=== PATIENT | female | born 1985 | race Caucasian/White ===

== ENCOUNTER 2017-05-17 19:51 | Emergency (ER) | payer MEDICAID ==
[2017-05-17] MEDS ORDERED: Acetaminophen 500 MG Tab PO ONE (21:25)
[2017-05-17] MEDS ORDERED: Acetaminophen 500 MG Tab ONE (21:26)
[2017-05-17] MEDS ORDERED: DULoxetine 30 MG Cap PO ONE (21:52)
[2017-05-17] MEDS ORDERED: DULoxetine 30 MG Cap ONE (21:54)
--- NOTE | 2017-05-17 23:19 | ER ---
HISTORY OF PRESENT ILLNESS: A 31-year-old lady here with complaints of chest discomfort with coughing. The pain seems to radiate back between her shoulder blades. This has been ongoing for a few days. I actually saw the patient a week ago. She was diagnosed with asthmatic bronchitis. She was put on antibiotic, albuterol, and three days of prednisone. She states that this treatment did seem to help her very much. The patient has not been running a fever. She has had episodes of heart palpitations on and off. They do not last very long. There are no problems with chest pain during these episodes. She states that she has a bruise on her right upper arm. She is concerned that she has a blood clot. She is here with another family member who is also very concerned about the patient. CURRENT MEDICATIONS: Cymbalta 60 mg daily that she takes for chronic pain. OBJECTIVE: GENERAL APPEARANCE: The patient is awake and alert, in no obvious distress. VITAL SIGNS: Reviewed as listed. HEENT: Ears; TMs are normal. Nares are patent. Oral mucous membranes moist. Tonsils not enlarged or injected. Pharynx not inflamed. NECK: Supple. LUNGS: Clear to auscultation with good air exchange throughout the lung jeffrey. CARDIAC: Heart sounds distinct, S1, S2 present. Regular rate. No murmurs. ABDOMEN: Soft, nontender. Bowel sounds are present. SKIN: Warm and dry. LAB AND X-RAY STUDIES: An EKG is obtained showing a normal sinus rhythm. Labs include a CBC, CMP, and D-dimer. Lab results are all normal. A chest CT was also obtained and is normal. DIAGNOSIS: Anxiety with history of anxiety. TREATMENT PLAN: The patient is on Cymbalta 60 mg q.a.m. We will add another 30 mg of Cymbalta to take q.p.m. She will be given one dose here in the emergency room, and I will write a script for 15 more tablets. Activity should be as tolerated, and I want the patient to follow up with her primary care provider back in the [facility] where she lives in a couple of weeks for recheck, sooner p.r.n. She plans on going back home in a couple of days. CRS/MODL /[id number]
--- NOTE | 2017-05-20 03:10 | CT ---
DATE OF SERVICE: 05/17/2017 CLINICAL DATA: Chest discomfort with coughing ENHANCED CHEST CT Multislice acquisition through the chest with IV contrast was performed. No priors. No evidence of PE. No pneumothorax. No pleural effusions. No aortic aneurysm or dissection. The lungs are clear. The heart size is normal. No pericardial effusion. No hilar or mediastinal adenopathy. The exam is otherwise unremarkable. IMPRESSION: Negative exam. [id number] MTDD
== END 2017-05-17 22:02 | disposition home or self-care (01) ==
LOC: LB.ED 19:51
DX: F41.9 Anxiety disorder, unspecified (principal); Z79.899 Other long term (current) drug therapy
CPT/HCPCS: 36415; 71260; 80053; 85025; 85379; 93005; 99285; A9270